=== PATIENT | female | born 1955 | race Caucasian/White ===

== ENCOUNTER 2019-01-02 12:23 | Day surgery (SDC) | payer OTHER ==
[~2019-01-02] VITALS: Ht 162.6 cm; Wt 73.7 kg
[2019-01-02] MEDS ORDERED: ATENOLOL (13:20)
[2019-01-02] MEDS ORDERED: ZOFRAN (13:20)
[2019-01-02] MEDS ORDERED: LEVOTHYROXINE (13:20)
[2019-01-02] MEDS ORDERED: OMEPRAZOLE (13:20)
[2019-01-02 13:25] VITALS: Ht 162.6 cm; Wt 73.7 kg
[2019-01-02 13:27] VITALS: BP 141/69; PULSE 63; RESP 18
--- NOTE | 2019-01-02 13:39 | PREAC ---
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) Surgery & Anesthesia Issues No known issue Meds Anticoagulation: No Beta [place] within 24 hr: Yes Reported Medications [Omeprazole] No Conflict Check 01/02/19 [Levothyroxine] No Conflict Check 01/02/19 [Zofran] No Conflict Check 01/02/19 [Atenolol] No Conflict Check 01/02/19 Meds reviewed: Yes Allergies Coded Allergies: No Known Allergy (Unverified , 01/02/19) Allergies Reviewed: Yes Labs/Studies Labs Reviewed: Reviewed by anesthesiologist test: N/A Studies: ECG (n/a), CXR (n/a) Pre-procedure Exam Airway: Adequate mouth opening, Adequate thyromental dist Mallampati: Mallampati II Teeth: Normal Lung: Normal Heart: Normal ASA Physical Status ASA physical status: 3 Emergency: None Planned Anesthetic General/MAC: MAC Planned Pain Management Parenteral pain med Pre-operative Attestations Prior to commencing anesthesia and surgery, the patient was re-evaluated, there was verification of: *The patient's identity *The results of appropriate recent lab work and preoperative vital signs *The above evaluation not changing prior to induction *Anesthetic plan, risk benefits, alternative and complications discussed with patient/family; questions answered; patient/family understands, accepts and wishes to proceed. RAYMOND AGUDELO MD Jan 02, 2019 13:39
--- NOTE | 2019-01-02 15:25 | PAC ---
Date/Time of Note Date/Time of Note DATE: 01/02/19 TIME: 15:25 Post-Anesthesia Notes Post-Anesthesia Note Last documented vital signs Vital Signs Date Temp Pulse Resp B/P (MAP) Pulse Ox O2 O2 Flow FiO2 Time Delivery Rate 01/02/19 97.7 63 18 141/69 100 Room Air 15:27 (93) Activity: WNL Respiratory function: WNL Cardiovascular function: WNL Mental status: Baseline Pain reasonably controlled: Yes Hydration appropriate: Yes Nausea/Vomiting absent: Yes RAYMOND AGUDELO MD Jan 02, 2019 15:25
== END 2019-01-02 15:43 | disposition home or self-care (01) ==
LOC: GIL 12:23
PROVIDERS: ATTEND Internal Medicine Gastroenterology
DX: K94.23 Gastrostomy malfunction (principal); Y83.3 Surgical operation with formation of external stoma as the cause of abnormal reaction of the patient, or of later complication, without mention of misadventure at the time of the procedure
CPT/HCPCS: 43762